=== PATIENT | female | born 1990 | race African-American/Black ===

== ENCOUNTER 2019-05-10 10:38 | Emergency (ER) | payer OTHER ==
[2019-05-10 11:03] VITALS: TEMP 98.3; BMI 55.0
[2019-05-10] MEDS ORDERED: IBUPROFEN 600 MG TABLET (FP) PO ONE ×2 (12:27→12:38)
[2019-05-10 12:52] LABS: BASO % 0.8 % (0-2.0); HEMATOCRIT 32.2 % (32.4-45.2); HEMOGLOBIN 10.6 GM/dL (10.7-15.3); LYMPH % 29.7 % (8-40); MCH 22.6 pg (25.7-33.7); MCHC 32.8 g/dl (32.0-36.0); MEAN CELL VOLUME 68.8 fl (80-96); MEAN PLT VOLUME 7.8 fl (7.5-11.1); MONO % 5.4 % (3.8-10.2); NEUT % 63.1 % (42.8-82.8); PLATELET COUNT 288 K/MM3 (134-434); RBC 4.68 M/mm3 (3.60-5.2); RDW 19.9 % (11.6-15.6); WHITE BLOOD COUNT 6.9 K/mm3 (4.0-10.0)
[2019-05-10 13:38] LABS: ALBUMIN 3.4 g/dl (3.4-5.0); ALK PHOS 74 U/L (45-117); ANION GAP 4 MMOL/L (8-16); BILIRUBIN,TOTAL 0.5 mg/dL (0.2-1); BLOOD UREA NITROGEN 8.4 mg/dL (7-18); CALCIUM 8.5 mg/dL (8.5-10.1); CHLORIDE 109 mmol/L (98-107); CO2 26 mmol/L (21-32); CREATININE 0.6 mg/dL (0.55-1.3); GLUCOSE,RANDOM 81 mg/dL (74-106); SGOT/AST 34 U/L (15-37); SGPT/ALT 15 U/L (13-61); SODIUM 139 mmol/L (136-145); TOT PROT 7.4 g/dl (6.4-8.2)
--- NOTE | 2019-05-10 14:11 | PDOC ---
Documentation entered by Sam Perez SCRIBE, acting as scribe for Lore Ochoa MD. Lore Ochoa MD: This documentation has been prepared by the Ana frank Elijah, SCRIBE, under my direction and personally reviewed by me in its entirety. I confirm that the documentation accurately reflects all work, treatment, procedures, and medical decision making performed by me. History of Present Illness - General Chief Complaint: Rectal Bleed Stated Complaint: CHEST PAIN, RECTAL BLEEDING Time Seen by Provider: 05/10/19 11:09 History Source: Patient Exam Limitations: No Limitations - History of Present Illness Initial Comments: 05/10/19 12:18 Patient is a 28 year old female with significant pmh of anxiety who presents with Chest Pain that began last night. Patient reports that the pain is mid- sternal, squeexing in nature and nonpluritic. Patient also notes that thepain worsens with movement and while lying flat. Patient denies SOB, Abdominal Pain, Cough, Fevers, Chills. Allergies: Peanut, Tree Nut PCP: Dr. James Vargas [facility] Hx: Heart Disease Current Medications: Zoloft, Stool Softener for recurrent Anal Fissures. Past History - Past Medical History Allergies/Adverse Reactions: Allergies Allergy/AdvReac Type Severity Reaction Status Date / Time peanut Allergy Verified 05/10/19 11:53 tree nut Allergy Verified 05/10/19 11:53 Home Medications: Ambulatory Orders Docusate Sodium [Colace] 100 mg PO DAILY 05/10/19 Sertraline HCl [Zoloft] 25 mg PO DAILY 05/10/19 COPD: No Psychiatric Problems: Yes (depression, anxiety) - Immunization History Immunization Up to Date: No - Psycho Social/Smoking Cessation Hx Smoking History: Never smoked Have you smoked in the past 12 months: No Information on smoking cessation initiated: No Hx Alcohol Use: No Drug/Substance Use Hx: No Review of Systems - Review of Systems Comments:: 05/10/19 12:23 GENERAL/CONSTITUTIONAL: No fever or chills. No weakness. HEAD, EYES, EARS, NOSE AND THROAT: No change in vision. No ear pain or discharge. No sore throat. CARDIOVASCULAR: +chest pain, No shortness of breath. RESPIRATORY: No cough, wheezing, or hemoptysis. GASTROINTESTINAL: No nausea, vomiting, diarrhea or constipation. GENITOURINARY: +Anal Fissures No dysuria, frequency, or change in urination. MUSCULOSKELETAL: No joint or muscle swelling or pain. No neck or back pain. SKIN: No rash NEUROLOGIC: No headache, vertigo, loss of consciousness, or change in strength/ sensation. ENDOCRINE: No increased thirst. No abnormal weight change. HEMATOLOGIC/LYMPHATIC: No anemia, easy bleeding, or history of blood clots. ALLERGIC/IMMUNOLOGIC: No hives or skin allergy. *Physical Exam - Vital Signs Last Vital Signs Temp Pulse Resp BP Pulse Ox 98.3 F 86 20 120/89 96 05/10/19 10:45 05/10/19 10:45 05/10/19 10:45 05/10/19 10:45 05/10/19 10:45 - Physical Exam Comments: 05/10/19 14:06 Awake alert no acute distress lungs are clear bilaterally there is left-sided midsternal costochondral junction tenderness to palpation no bony step-offs or crepitus. Lungs are clear bilaterally heart is regular without any murmurs rubs or gallops abdomen is soft nontender obese. Extremities are warm and well- perfused no noted peripheral edema no calf tenderness. 2+ DP PT pulses. Neurological patient is awake alert x3 05/10/19 14:56 rectal exam with small skin tag, fissure. ttp. no active bleeding. but blood present. ED Treatment Course - LABORATORY CBC & Chemistry Diagram: 05/10/19 12:45 05/10/19 12:45 - ADDITIONAL ORDERS Additional order review: Laboratory Results 05/10/19 05/10/19 12:45 11:40 Sodium 139 Potassium 5.0 Chloride 109 H Carbon Dioxide 26 Anion Gap 4 L BUN 8.4 Creatinine 0.6 Est GFR (CKD-EPI)AfAm 144.78 Est GFR (CKD-EPI)NonAf 124.92 Random Glucose 81 Calcium 8.5 Total Bilirubin 0.5 AST 34 ALT 15 Alkaline Phosphatase 74 Creatine Kinase 190 Troponin I < 0.02 Total Protein 7.4 Albumin 3.4 Urine HCG, Qual Negative 05/10/19 12:45 RBC 4.68 MCV 68.8 L MCHC 32.8 RDW 19.9 H MPV 7.8 Neutrophils % 63.1 Lymphocytes % 29.7 Monocytes % 5.4 Eosinophils % 1.0 Basophils % 0.8 - RADIOLOGY Radiology Studies Ordered: Category Date Time Status CHEST PA & LAT [RAD] Stat Radiology 05/10/19 11:16 Completed - Medications Given in the ED: ED Medications Discontinued Medications Generic Name Dose Route Start Last Admin Trade Name Corby PRN Reason Stop Dose Admin Ibuprofen 600 mg 05/10/19 12:27 05/10/19 12:45 Motrin - PO 05/10/19 12:28 600 mg ONCE ONE Administration Medical Decision Making - Medical Decision Making 05/10/19 14:04 28-year-old female history of depression here today complaining of chest pain. Patient states her symptoms are sharp like a pinch is worse with certain movements denies pleurisy denies shortness of breath no fevers no chills does have a family history of heart disease family members in their 50s. No history of previous blood clots no fevers no chills no cough no recent travel no leg swelling calf pain. Patient states she was on Depakote last shot was 5 months ago My physical exam patient is awake alert no acute distress there is positive chest wall tenderness midsternal costochondral junction. Pain with arm abduction against resistance above 90 degrees lungs are clear bilaterally heart is regular murmur murmurs rubs or gallops extremities are without peripheral edema. Patient is obese Differential includes costochondritis, other things considered infection such as pneumonia pneumothorax costochondritis patient has no risk factors for PE. Will obtain EKG chest x-ray troponin. ACS is less likely due to the patient's age EKG is unremarkable troponin is negative chest x-ray is normal we will treat with ibuprofen and discharged home to follow-up with her primary care doctor given referral for cardiology should her Discharge - Discharge Information Problems reviewed: Yes Clinical Impression/Diagnosis: Costochondritis, Hemorrhoids, Anal fissure - Admission No - Follow up/Referral Referrals: James Vargas MD [Primary Care Provider] - Carmelo Rodriges MD [Staff Physician] - Valdez Morales MD [Staff Physician] - - Patient Discharge Instructions Patient Printed Discharge Instructions: Costochondritis, DI for Hemorrhoids Additional Instructions: Patient follow-up with a bridge rigger for your hemorrhoids call to schedule an appointment. You can take Motrin Advil as needed every 8 hours for your pain. Return for any shortness of breath any fevers chills or any concerns your test and your heart your chest x-ray today were normal she also follow-up with a terminal press operator and your primary care doctor see referral information call to schedule any follow-up appointments - Post Discharge Activity
[2019-05-10 15:25] VITALS: BP 125/91; PULSE 74
--- NOTE | 2019-05-11 12:00 | EKG ---
Test Reason : Blood Pressure : / mmHG Vent. Rate : 069 BPM Atrial Rate : 069 BPM P-R Int : 162 ms QRS Dur : 088 ms QT Int : 398 ms P-R-T Axes : 065 -08 -01 degrees QTc Int : 426 ms NORMAL SINUS RHYTHM POSSIBLE ANTEROLATERAL INFARCT , AGE UNDETERMINED ABNORMAL ECG NO PREVIOUS ECGS AVAILABLE Confirmed by LANCE CUNNINGHAM MD ([id number]) on 05/11/2019 11:59:38 AM Referred By: Confirmed By:LANCE CUNNINGHAM MD
== END 2019-05-10 15:15 | disposition home or self-care (01) ==
LOC: JER 10:38
DX: K60.2 Anal fissure, unspecified (principal); K64.9 Unspecified hemorrhoids; Z91.010 Allergy to peanuts; Z91.018 Allergy to other foods
CPT/HCPCS: 36415; 71046-TC-FY; 80053; 82550; 82553; 84484; 84703; 85025; 93005; 93010; 99283-25